=== PATIENT | male | born 1980 | race Caucasian/White ===

== ENCOUNTER 2021-05-09 13:18 | Emergency (ER) | payer BC ==
[2021-05-09 13:47] LABS: HEMOGLOBIN 17.9 gm/dl (14.0-17.5); RED BLOOD COUNT 5.88 M/UL (4.20-5.50); WHITE BLOOD COUNT 8.3 K/UL (4.5-11.0)
[2021-05-09 14:08] LABS: BUN/CREATININE RATIO 16 (0-10)
[2021-05-09] MEDS ORDERED: MUCINEX FAST-M1 EAC1 PO (15:02)
[2021-05-09] MEDS ORDERED: MECLIZINE HCL25 MG PO (15:10)
== END 2021-05-09 15:02 | disposition home or self-care (01) ==
LOC: ER1 13:18
PROVIDERS: Student in an Organized Health Care Education/Training Program
DX: R42 Dizziness and giddiness (principal); R05.9 Cough, unspecified; B34.9 Viral infection, unspecified; Z20.822 Contact with and (suspected) exposure to COVID-19; I10 Essential (primary) hypertension; Z79.899 Other long term (current) drug therapy
CPT/HCPCS: 71045; 80053; 82550; 82553; 83874; 84484; 85025; 93005; 99284; U0002